=== PATIENT | female | born 1950 | race Caucasian/White ===

== ENCOUNTER → 2018-03-29 | Outpatient (CLI) | payer MEDICARE ==
[~2018-03-29] MED LIST: AUG875 PO; LIS20 PO; LOVA20TA99 PO; LOVA40TA89 PO
--- NOTE | 2018-03-30 11:48 | RADIOLOGY IMAGING REPORT ---
FACILITY: [facility] PATIENT NAME: JOSETTE MENDOSA : [id number] MR: [id number] V: [id number] EXAM DATE: [id number] ORDERING PHYSICIAN: EMMANUEL GAGNON TECHNOLOGIST: Latanya Stubbs PROCEDURE:BILATERAL DIGITAL SCREENING MAMMOGRAM WITH CAD ASSISTED INTERPRETATION & 3D TOMOSYNTHESIS COMPARISON:Prior mammograms 03/24/17, 02/19/16. INDICATIONS:SCREENING FINDINGS: There is scattered fibroglandular tissue. Benign secretory calcifications in the Right breast are unchanged. No suspicious mass, microcalcification or architectural distortion. No change compared to priors. DIAGNOSTIC CATEGORY 1--NEGATIVE. RECOMMENDATIONS: ROUTINE MAMMOGRAM AND CLINICAL EVALUATION. IMPRESSION: BIRADS 1: Negative. Normal exam. Dictated by: Brett Rodriguez on 03/30/2018 at 10:01 Transcribed by: TRISTAN on 03/30/2018 at 10:06 Approved by: Brett Rodriguez on 03/30/2018 at 11:47 [facility]
== END ==
LOC: MAMO 01:59
PROVIDERS: ATTEND Obstetrics & Gynecology
DX: Z12.31 Encounter for screening mammogram for malignant neoplasm of breast (principal)
CPT/HCPCS: 77063; 77067